=== PATIENT | female | born 1970 | race Caucasian/White ===

== ENCOUNTER 2019-09-15 06:34 | Inpatient (IN) ==
[2019-09-15] MEDS ORDERED: cefOXitin 2,000 MG in Water for inj. (sterile) 20 ML IVP ONE (07:18)
[2019-09-15] MEDS ORDERED: Dexamethasone 4 MG/ML VIAL IVP ONE (08:00)
[2019-09-15] MEDS ORDERED: Ringers Solution, Lactated 1,000 ML IVC SCH (08:00)
[2019-09-15] MEDS ORDERED: *HR* Succinylcholine 200 MG/10 ML VIAL IVP ONE (08:30)
[2019-09-15] MEDS ORDERED: Lidocaine HCL 4 ML Topical Solution (Laryng-O-Jet Kit Sterile Pak) TP ONE (08:30)
[2019-09-15] MEDS ORDERED: Dexamethasone 4 MG/ML VIAL ONE (08:30)
[2019-09-15] MEDS ORDERED: Ondansetron ODT 4 MG TAB.RAPDIS SL ONE (08:30)
[2019-09-15] MEDS ORDERED: *HR* Rocuronium Bromide 50 MG/5 ML VIAL ONE (08:30)
[2019-09-15] MEDS ORDERED: Lidocaine -MPF 2% 2 ML VIAL ONE (08:30)
[2019-09-15] MEDS ORDERED: Ondansetron 4 MG/2 ML VIAL IVP ONE (08:32)
[2019-09-15] MEDS ORDERED: *HR* HYDROmorphone PF 0.5 MG/0.5 ML SYRINGE IVP PRN (08:32)
[2019-09-15] MEDS ORDERED: *HR* FentaNYL (PF) 100 MCG/2 ML VIAL IVP PRN (08:32)
[2019-09-15] MEDS ORDERED: *HR* Midazolam HCl 2 MG/2 ML VIAL ONE (08:33)
[2019-09-15] MEDS ORDERED: *HR* Propofol 200 MG/20 ML VIAL IVP ONE (08:33)
[2019-09-15] MEDS ORDERED: *HR* Remifentanil 2 MG VIAL IVP ONE (08:39)
[2019-09-15 08:43] LABS: Activated Partial Thrombo Time 33.5 Seconds (26.0-36.0); INR 1.1
[2019-09-15] MEDS ORDERED: Hydrocortisone Sodium Succ 100 MG/2 ML VIAL ONE (10:02)
[2019-09-15] MEDS ORDERED: *HR* PHENYLEPHRINE 1,000 MCG/10 ML SYRINGE IVP ONE (10:26)
[2019-09-15] MEDS ORDERED: *HR* HYDROMORPHONE 2 MG/ML VIAL ONE (11:32)
[2019-09-15] MEDS ORDERED: Ondansetron 4 MG/2 ML VIAL IVP PRN (14:53)
[2019-09-15] MEDS ORDERED: Naloxone 0.4 MG/ML INJ IVP PRN (14:53)
[2019-09-15] MEDS ORDERED: *HR* Heparin 5,000 UNIT/ML VIAL SQ SCH (18:00)
[2019-09-15] MEDS ORDERED: Ketorolac 15 MG/ML VIAL IVP SCH (18:00)
[2019-09-15] MEDS: 0.9 % Sodium Chloride 1,000 ML IVC SCH (18:08)
[2019-09-15] MEDS: Acetaminophen IV 1,000 MG/100 ML INFUS..BTL IVPB SCH (18:10)
[2019-09-16] MEDS: Acetaminophen IV 1,000 MG/100 ML INFUS..BTL IVPB SCH ×5 (00:15→23:00)
[2019-09-16] MEDS: 0.9 % Sodium Chloride 1,000 ML IVC SCH ×2 (07:05→20:28)
[2019-09-16 07:47] LABS: Basophils % 0.2 %; Eosinophils % 0.3 %; Hematocrit 36.1 % (35.3-44.9); Hemoglobin 11.6 g/dL (11.5-15.4); Immature Granulocytes % 0.4 % (0-4); Lymphocytes # 1.7 K/mcL (0.6-4.6); Lymphocytes % 10.7 %; Mean Corpuscular HGB Conc 32.1 g/dL (31.6-35.5); Mean Corpuscular Hemoglobin 30.9 pg (28.0-33.3); Mean Platelet Volume 10.9 fL (9.4-12.4); Monocytes # 1.3 K/mcL (0.0-1.3); Monocytes % 8.2 %; Neutrophils # 12.4 K/mcL (1.6-8.9); Platelet Count 269 K/mcL (140-400); Red Blood Count 3.76 M/mcL (3.82-4.97); Red Cell Distribution Width 15.2 % (11.5-14.5); Segmented Neutrophils % 80.2 %; White Blood Count 15.5 K/mcL (4.3-11.1)
[2019-09-16 07:48] LABS: BUN/Creatinine Ratio 9 (6-26); Blood Urea Nitrogen 7 mg/dL (6-20); Calcium 8.7 mg/dL (8.6-10.3); Carbon Dioxide 23 mEq/L (23-29); Chloride 104 mEq/L (98-107); Glucose 122 mg/dL (70-105); Osmolality,Calculated 283 (280-300); Potassium 3.4 mEq/L (3.5-5.1); Sodium 137 mEq/L (136-145); eGFR For African Americans > 60 (> 60); eGFR For Non-African Americans > 60 (> 60)
[2019-09-16] MEDS: Ketorolac 15 MG/ML VIAL IVP SCH ×3 (12:05→22:59)
[2019-09-16] MEDS: *HR* Enoxaparin 100 MG/ML SYRINGE SQ SCH (17:53)
[2019-09-17] MEDS: Acetaminophen IV 1,000 MG/100 ML INFUS..BTL IVPB SCH (05:21)
[2019-09-17] MEDS: Ketorolac 15 MG/ML VIAL IVP SCH (05:22)
[2019-09-17] MEDS: *HR* Enoxaparin 100 MG/ML SYRINGE SQ SCH ×2 (05:23→13:49)
[2019-09-17] MEDS: 0.9 % Sodium Chloride 1,000 ML IVC SCH (10:19)
[2019-09-17 10:27] VITALS: BP 105/65
[2019-09-17] MEDS ORDERED: *HR* Warfarin 7.5 MG TABLET PO ONE (11:13)
[2019-09-17] MEDS ORDERED: Enoxaparin Weight Dosing SQ ONE (15:00)
== END 2019-09-17 14:28 | disposition home or self-care (01) | DRG 330 ==
LOC: SAMDAY 06:34 → 3ANU 09:39
PROVIDERS: ADMIT Surgery; ATTEND Surgery